=== PATIENT | female | born 1935 | race Caucasian/White ===

== ENCOUNTER → 2019-08-19 | Outpatient (CLI) | payer MEDICARE ==
--- NOTE | 2019-08-19 15:12 | Diagnostic Imaging Report ---
EXAMINATION: CERVICAL SPINE 4 OR 5 VIEWS INDICATION: Neck pain COMPARISON: None FINDINGS: AP, lateral, oblique and odontoid images of the cervical spine were obtained. No acute fracture. Minimal anterolisthesis at C2-3 and C3-4. Alignment is otherwise anatomic. Moderate multilevel degenerative changes with small osteophyte formation. Minimally visualized lung apices are clear. Vertebral soft tissues are normal in thickness. IMPRESSION: No acute osseous injury. Minimal anterolisthesis at C2-3 and C3-4. Moderate multilevel degenerative changes. Signed by: Velma Casanova MD on 08/19/2019 3:08 PM
== END ==
LOC: RAD 11:17
PROVIDERS: ATTEND Family Medicine
DX: M50.122 Cervical disc disorder at C5-C6 level with radiculopathy (principal)
CPT/HCPCS: 72050

== ENCOUNTER → 2024-03-20 | Outpatient (REF) | payer MEDICARE | LOC: CARD 08:59 | PROVIDERS: ATTEND Family Medicine | DX: I73.9 Peripheral vascular disease, unspecified (principal) | CPT/HCPCS: 93925 ==

== ENCOUNTER → 2024-07-23 | Outpatient (REF) | payer MEDICARE | LOC: RAD 13:36 | PROVIDERS: ATTEND Family Medicine | DX: R60.0 Localized edema (principal) | CPT/HCPCS: 93970 ==

== ENCOUNTER 2024-09-02 13:31 | Inpatient (IN) | payer MEDICARE ==
[~2024-09-02] VITALS: Ht 157.5 cm; Wt 89.4 kg
[2024-09-02 13:56] VITALS: TEMP 97.8
[2024-09-02 14:16] LABS: BASOPHILS % 0.5 % (0.0-1.0); EOSINOPHILS # (AUTO) 0.4 (0.0-0.4); HEMATOCRIT 36.4 % (34.2-44.1); HEMOGLOBIN 11.5 g/dL (12.0-16.0); LYMPHOCYTES # (AUTO) 1.2 (1.0-3.2); LYMPHOCYTES % 14.1 % (18.0-39.1); MEAN CORPUSCULAR HGB CONC 31.6 g/dL (31-35); MEAN CORPUSCULAR VOLUME 91.9 fL (81-99); MONOCYTES # (AUTO) 1.2 (0.2-0.8); MONOCYTES % 14.2 % (4.4-11.3); NEUTROPHILS # (AUTO) 5.7 (2.1-6.9); NEUTROPHILS % 65.9 % (38.7-80.0); PLATELET COUNT 215 x10e3/uL (140-360); RED BLOOD COUNT 3.96 x10e6/uL (3.6-5.1); RED CELL DISTRIBUTION WIDTH 14.5 % (11.7-14.4); WHITE BLOOD COUNT 8.66 x10e3/uL (4.8-10.8)
[2024-09-02 14:38] LABS: ALBUMIN 3.7 g/dL (3.5-5.0); ANION GAP 14.9 mmol/L (8-16); BILIRUBIN,TOTAL 0.7 mg/dL (0.2-1.2); CALCIUM 9.2 mg/dL (8.4-10.2); CREATININE, SERUM 0.78 mg/dL (0.57-1.11); POTASSIUM 3.9 mmol/L (3.5-5.1); TOTAL PROTEIN 7.3 g/dL (6.5-8.1)
[2024-09-02] MEDS: CEFTRIAXONE 2 GM in SODIUM CHLORIDE 0.9% 100 ML IV ONE (14:55)
[2024-09-02 15:00] VITALS: PULSE 73; RESP 18
[2024-09-02] MEDS ORDERED: ONDANSETRON HCL INJ 2MG/ML 2ML 2 MG/ML VIAL IV PRN (15:30)
[2024-09-02] MEDS ORDERED: Morphine 2mg Syringe 2 MG/ML SYR IV PRN (15:30)
[2024-09-02 16:00] VITALS: BP 156/51; PULSE 67; RESP 18; TEMP 97.8; O2SAT 96
[2024-09-02] MEDS: Vancomycin IV 1 GM in SODIUM CHLORIDE 0.9% 250ML 250 ML IV ONE (16:03)
[2024-09-02] MEDS ORDERED: Vancomycin IV 1.75 GM in SODIUM CHLORIDE 0.9% 250ML 250 ML IV SCH (16:30)
[2024-09-02] MEDS ORDERED: Vancomycin IV 1.75 GM in SODIUM CHLORIDE 0.9% 500ML 500 ML IV ONE (16:30)
[2024-09-02 17:30] VITALS: BP 156/51; PULSE 67; RESP 18; TEMP 97.8; O2SAT 96
[2024-09-02] MEDS: Vancomycin IV 1.75 GM in SODIUM CHLORIDE 0.9% 500ML 500 ML IV ONE (18:09)
[2024-09-02 20:00] VITALS: BP 110/73; PULSE 78; RESP 20; TEMP 98.2; O2SAT 96
[2024-09-02] MEDS: SODIUM CHLORIDE 0.9% 1000ML 1,000 ML IV SCH (22:12)
[2024-09-03] VITALS (9 sets, daily range): BP systolic 101–147; BP diastolic 47–98; PULSE 75–78; RESP 17–20; TEMP 97.8–98.5; O2SAT 94–99
[2024-09-03 06:46] LABS: BASOPHILS % 0.5 % (0.0-1.0); EOSINOPHILS # (AUTO) 0.3 (0.0-0.4); EOSINOPHILS % 5.3 % (0.0-6.0); HEMATOCRIT 30.5 % (34.2-44.1); HEMOGLOBIN 9.5 g/dL (12.0-16.0); LYMPHOCYTES # (AUTO) 1.3 (1.0-3.2); LYMPHOCYTES % 22.6 % (18.0-39.1); MEAN CORPUSCULAR HEMOGLOBIN 29.1 pg (28-32); MEAN CORPUSCULAR HGB CONC 31.1 g/dL (31-35); MEAN CORPUSCULAR VOLUME 93.6 fL (81-99); MONOCYTES # (AUTO) 0.7 (0.2-0.8); NEUTROPHILS # (AUTO) 3.3 (2.1-6.9); NEUTROPHILS % 58.2 % (38.7-80.0); PLATELET COUNT 162 x10e3/uL (140-360); RED BLOOD COUNT 3.26 x10e6/uL (3.6-5.1); RED CELL DISTRIBUTION WIDTH 14.3 % (11.7-14.4); WHITE BLOOD COUNT 5.71 x10e3/uL (4.8-10.8)
[2024-09-03 07:36] LABS: ALBUMIN 2.7 g/dL (3.5-5.0); ANION GAP 10.6 mmol/L (8-16); BILIRUBIN,TOTAL 0.4 mg/dL (0.2-1.2); CALCIUM 8.4 mg/dL (8.4-10.2); CREATININE, SERUM 0.62 mg/dL (0.57-1.11); POTASSIUM 3.6 mmol/L (3.5-5.1); TOTAL PROTEIN 5.3 g/dL (6.5-8.1)
[2024-09-03] MEDS ORDERED: ACETAMINOPHEN 325 MG TAB PO PRN (11:45)
[2024-09-03] MEDS ORDERED: FENTANYL CITRATE/PF 100MCG/2 ML INJ ONE (12:03)
[2024-09-03] MEDS ORDERED: PROPOFOL IV EMULSION 50 ML IV ONE (12:03)
[2024-09-03] MEDS ORDERED: ONDANSETRON HCL INJ 2MG/ML 2ML 2 MG/ML VIAL ONE (12:09)
[2024-09-03] MEDS ORDERED: LIDOCAINE HCL 2% LOCAL INJ 5 ML SDV VIAL INJ ONE (12:09)
[2024-09-03] MEDS: HYDROCODONE/APAP 10MG-325MG TAB PO PRN (22:29)
[2024-09-04] VITALS (9 sets, daily range): BP systolic 120–171; BP diastolic 51–88; PULSE 72–95; RESP 17–20; TEMP 98.3–99; O2SAT 93–100
[2024-09-04] MEDS ORDERED: METOPROLOL SUCC25 MG PO (11:02)
[2024-09-04] MEDS ORDERED: TRAZODONE HCL50 MG PO (11:02)
[2024-09-04] MEDS ORDERED: CEPHALEXIN500 MG PO (11:02)
[2024-09-04] MEDS ORDERED: MEMANTINE HCL5 MG PO (11:02)
[2024-09-04] MEDS ORDERED: FUROSEMIDE20 MG PO (11:02)
[2024-09-04] MEDS ORDERED: GABAPENTIN100 MG PO (11:02)
[2024-09-04] MEDS ORDERED: CLOPIDOGREL75 MG PO (11:02)
[2024-09-04] MEDS ORDERED: ATORVASTATIN CA40 MG PO (11:02)
[2024-09-04] MEDS ORDERED: PANTOPRAZOLE SO40 MG PO (11:02)
[2024-09-05] VITALS (10 sets, daily range): BP systolic 126–189; BP diastolic 62–90; PULSE 60–87; RESP 18–22; TEMP 97.1–98.6; O2SAT 92–100
[2024-09-05] MEDS ORDERED: ALBUTEROL/IPRATROPIUM 3 ML NEB NEB PRN (11:15)
[2024-09-05] MEDS: POTASSIUM CHLORIDE 10MEQ EA PO SCH (11:24)
[2024-09-05] MEDS: CLOPIDOGREL BISULFATE 75 MG TAB PO SCH (11:24)
[2024-09-05] MEDS: MEMANTINE 10 MG TAB PO SCH (11:24)
[2024-09-05] MEDS: FUROSEMIDE INJ 10 MG/ML 4 ML VIAL IV ONE (11:26)
[2024-09-05] MEDS: ALBUTEROL/IPRATROPIUM 3 ML NEB NEB SCH (12:19)
[2024-09-05 13:09] LABS: BASOPHILS % 0.3 % (0.0-1.0); EOSINOPHILS # (AUTO) 0.4 (0.0-0.4); EOSINOPHILS % 7.1 % (0.0-6.0); HEMATOCRIT 32.5 % (34.2-44.1); HEMOGLOBIN 10.6 g/dL (12.0-16.0); LYMPHOCYTES # (AUTO) 1.8 (1.0-3.2); LYMPHOCYTES % 29.5 % (18.0-39.1); MEAN CORPUSCULAR HEMOGLOBIN 29.4 pg (28-32); MEAN CORPUSCULAR HGB CONC 32.6 g/dL (31-35); MEAN CORPUSCULAR VOLUME 90.3 fL (81-99); MONOCYTES # (AUTO) 0.6 (0.2-0.8); MONOCYTES % 9.8 % (4.4-11.3); NEUTROPHILS # (AUTO) 3.3 (2.1-6.9); PLATELET COUNT 186 x10e3/uL (140-360); WHITE BLOOD COUNT 6.24 x10e3/uL (4.8-10.8)
[2024-09-05 13:31] LABS: ANION GAP 12.6 mmol/L (8-16); CALCIUM 9.1 mg/dL (8.4-10.2); CREATININE, SERUM 0.64 mg/dL (0.57-1.11); POTASSIUM 3.6 mmol/L (3.5-5.1)
[2024-09-05] MEDS: GABAPENTIN 100 MG CAP PO SCH (20:30)
[2024-09-05] MEDS: TRAZODONE HCL 50 MG TAB PO SCH (20:31)
[2024-09-05] MEDS: METOPROLOL SUCCINATE 25 MG TAB XL PO SCH (20:31)
[2024-09-05] MEDS: ATORVASTATIN 20 MG TAB PO SCH (20:31)
[2024-09-06] VITALS (12 sets, daily range): BP systolic 108–181; BP diastolic 67–99; PULSE 57–78; RESP 16–20; TEMP 97.8–98.1; O2SAT 97–100
[2024-09-06 08:23] LABS: BASOPHILS % 0.4 % (0.0-1.0); EOSINOPHILS # (AUTO) 0.4 (0.0-0.4); EOSINOPHILS % 7.9 % (0.0-6.0); HEMATOCRIT 32.1 % (34.2-44.1); HEMOGLOBIN 10.2 g/dL (12.0-16.0); LYMPHOCYTES # (AUTO) 1.2 (1.0-3.2); MEAN CORPUSCULAR HEMOGLOBIN 28.9 pg (28-32); MEAN CORPUSCULAR HGB CONC 31.8 g/dL (31-35); MEAN CORPUSCULAR VOLUME 90.9 fL (81-99); MONOCYTES # (AUTO) 0.6 (0.2-0.8); MONOCYTES % 10.7 % (4.4-11.3); NEUTROPHILS % 57.6 % (38.7-80.0); PLATELET COUNT 191 x10e3/uL (140-360); RED BLOOD COUNT 3.53 x10e6/uL (3.6-5.1); RED CELL DISTRIBUTION WIDTH 14.1 % (11.7-14.4); WHITE BLOOD COUNT 5.21 x10e3/uL (4.8-10.8)
[2024-09-06 08:56] LABS: ANION GAP 11.7 mmol/L (8-16); CALCIUM 8.8 mg/dL (8.4-10.2); CREATININE, SERUM 0.61 mg/dL (0.57-1.11); POTASSIUM 3.7 mmol/L (3.5-5.1)
[2024-09-06] MEDS: CEFTRIAXONE 2 GM in SODIUM CHLORIDE 0.9% 100 ML IV SCH (09:13)
[2024-09-06] MEDS: PANTOPRAZOLE SOD 40 MG TABEC PO SCH (09:14)
[2024-09-06] MEDS: FUROSEMIDE INJ 10 MG/ML 4 ML VIAL IV SCH (09:14)
[2024-09-07] VITALS (8 sets, daily range): BP systolic 126–169; BP diastolic 52–76; PULSE 67–84; RESP 18–20; TEMP 97.7–98.7; O2SAT 96–100
[2024-09-07 06:25] LABS: BASOPHILS % 0.5 % (0.0-1.0); EOSINOPHILS # (AUTO) 0.6 (0.0-0.4); EOSINOPHILS % 9.8 % (0.0-6.0); HEMOGLOBIN 11.2 g/dL (12.0-16.0); LYMPHOCYTES # (AUTO) 1.4 (1.0-3.2); LYMPHOCYTES % 24.2 % (18.0-39.1); MEAN CORPUSCULAR HEMOGLOBIN 29.1 pg (28-32); MEAN CORPUSCULAR VOLUME 90.9 fL (81-99); MONOCYTES # (AUTO) 0.6 (0.2-0.8); MONOCYTES % 10.5 % (4.4-11.3); NEUTROPHILS # (AUTO) 3.2 (2.1-6.9); NEUTROPHILS % 54.8 % (38.7-80.0); PLATELET COUNT 220 x10e3/uL (140-360); RED BLOOD COUNT 3.85 x10e6/uL (3.6-5.1); RED CELL DISTRIBUTION WIDTH 13.8 % (11.7-14.4); WHITE BLOOD COUNT 5.91 x10e3/uL (4.8-10.8)
[2024-09-07 06:49] LABS: ANION GAP 12.9 mmol/L (8-16); CALCIUM 9.2 mg/dL (8.4-10.2); CREATININE, SERUM 0.61 mg/dL (0.57-1.11); POTASSIUM 3.9 mmol/L (3.5-5.1)
[2024-09-07 07:03] LABS: MAGNESIUM 1.9 MG/DL (1.3-2.1)
[2024-09-07] MEDS ORDERED: ONDANSETRON HCL 4 MG ORAL DISINTEGRATING TAB PO PRN (10:00)
[2024-09-08] MEDS ORDERED: FUROSEMIDE 40 MG TAB PO SCH (09:00)
== END 2024-09-07 13:40 | DRG 503 ==
LOC: ER 14:01 → ERHOLD 15:20 → MED/SURG3 16:44
PROVIDERS: ADMIT Internal Medicine; ATTEND Internal Medicine
PROC: 0Y6R0Z3 Detachment at Right 2nd Toe, Low, Open Approach (ICD-10-PCS; principal; 2024-09-03 13:00)
PROC: 05HY33Z Insertion of Infusion Device into Upper Vein, Percutaneous Approach (ICD-10-PCS; 2024-09-04)
DX: M86.171 Other acute osteomyelitis, right ankle and foot (principal); I50.33 Acute on chronic diastolic (congestive) heart failure; L98.496 Non-pressure chronic ulcer of skin of other sites with bone involvement without evidence of necrosis; Z16.19 Resistance to other specified beta lactam antibiotics; I11.0 Hypertensive heart disease with heart failure; L03.031 Cellulitis of right toe; E66.9 Obesity, unspecified; E78.5 Hyperlipidemia, unspecified; I70.90 Unspecified atherosclerosis; F03.90 Unspecified dementia, unspecified severity, without behavioral disturbance, psychotic disturbance, mood disturbance, and anxiety; B96.4 Proteus (mirabilis) (morganii) as the cause of diseases classified elsewhere; I73.9 Peripheral vascular disease, unspecified; Z88.0 Allergy status to penicillin
CPT/HCPCS: 36415; 36569; 71045; 80048; 80053; 83036; 83735; 84100; 85025; 87071; 87075; 87186; 87205; 88304; 88305; 88311; 94640; 94799; 99252; 99284; J0692; J0696; J1938; J2003; J2405; J2470; J7030; J7040; J7050